=== PATIENT | male | born 1975 | race African-American/Black ===

== ENCOUNTER 2024-02-27 18:43 | Observation (INO) | payer MEDICARE, SELFPAY ==
[2024-02-27] MEDS ORDERED: Famotidine/PF 20 mg/2ml Vial ONE (20:20)
[2024-02-27] MEDS ORDERED: Acetaminophen 500 MG TAB ONE (20:20)
[2024-02-27 20:40] LABS: #Basophils 0.02 10x3/uL (0.0-0.2); #Eosinphils 0.16 10x3/uL (0.0-0.5); #Monocytes 0.56 10x3/uL (0.0-1.1); #Neutrophils 2.79 10x3/uL (1.5-8.4); %Basophils 0.3 % (0.0-2.0); %Eosinophils 2.7 % (0.0-6.0); %Lymphocytes 39.9 % (18.0-47.0); %Monocytes 9.5 % (0.0-10.0); %Neutrophils 47.4 % (40.0-75.0); Hematocrit 34.7 % (38.8-50.0); Hemoglobin 11.8 g/dL (13.5-17.5); Mean Corpuscular Hemoglobin 30.7 pg (27.0-33.0); Mean Corpuscular Volume 90.4 fL (81.2-95.1); Mean Platelet Volume 9.3 fL (7.4-10.4); Platelet Count 216 10x3/uL (150-450); RBC Distribution Width 13.2 % (11.5-14.5); Red Blood Cell (RBC) Count 3.84 10x6/uL (4.32-5.72); White Blood Cell (WBC) Count 5.9 10x3/uL (3.5-10.5)
[2024-02-27 20:59] LABS: ALT (SGPT) 13 U/L (8-55); AST (SGOT) 17 U/L (5-34); Albumin 4.1 g/dL (3.5-5.0); Alkaline Phosphatase 67 U/L (40-110); Anion Gap 12 mmol/L (10-20); BUN (Urea Nitrogen) 23 mg/dL (8.9-20.6); Bilirubin, Total 0.4 mg/dL (0.2-1.2); Calc. Creatinine Clearance 0 mL/min (70-130); Calcium 9.1 mg/dL (7.8-10.44); Carbon Dioxide 24 mmol/L (22-29); Chloride 101 mmol/L (98-107); Estimated GFR 55; Globulin 2.7 g/dL (2.4-3.5); Glucose 96 mg/dL (70-105); Lipase 23 U/L (8-78); Magnesium 1.9 mg/dL (1.6-2.6); Potassium 3.3 mmol/L (3.5-5.1); Protein, Total 6.8 g/dL (6.0-8.3); Sodium 134 mmol/L (136-145)
[2024-02-27 21:05] LABS: Troponin I Less than 0.010 ng/mL (< 0.028)
[2024-02-28 02:08] VITALS: BMI 23.6
[2024-02-28] MEDS ORDERED: Acetaminophen 325 MG TAB PO PRN (02:13)
[2024-02-28] MEDS ORDERED: Senokot S 8.6-50 MG TAB PO PRN (02:13)
[2024-02-28] MEDS: Sodium Chloride 0.9% 1,000 ML IV SCH (02:41)
[2024-02-28] MEDS: Potassium Chloride 20 MEQ TAB PO SCH (02:41)
[2024-02-28 04:38] LABS: Anion Gap 12 mmol/L (10-20); BUN (Urea Nitrogen) 18 mg/dL (8.9-20.6); Calc. Creatinine Clearance 64 mL/min (70-130); Calcium 8.4 mg/dL (7.8-10.44); Carbon Dioxide 23 mmol/L (22-29); Chloride 105 mmol/L (98-107); Estimated GFR 60; Glucose 134 mg/dL (70-105); Magnesium 1.7 mg/dL (1.6-2.6); Potassium 3.3 mmol/L (3.5-5.1); Sodium 137 mmol/L (136-145)
[2024-02-28 04:42] LABS: Troponin I Less than 0.010 ng/mL (< 0.028)
[2024-02-28 04:45] LABS: #Basophils 0.02 10x3/uL (0.0-0.2); #Eosinphils 0.21 10x3/uL (0.0-0.5); #Monocytes 0.42 10x3/uL (0.0-1.1); %Basophils 0.3 % (0.0-2.0); %Eosinophils 3.6 % (0.0-6.0); %Lymphocytes 48.6 % (18.0-47.0); %Monocytes 7.3 % (0.0-10.0); Hematocrit 32.4 % (38.8-50.0); Hemoglobin 11.1 g/dL (13.5-17.5); Mean Corpuscular HGB CONC 34.3 g/dL (32.0-36.0); Mean Corpuscular Hemoglobin 31.1 pg (27.0-33.0); Mean Corpuscular Volume 90.8 fL (81.2-95.1); Mean Platelet Volume 10.2 fL (7.4-10.4); Platelet Count 214 10x3/uL (150-450); Red Blood Cell (RBC) Count 3.57 10x6/uL (4.32-5.72); White Blood Cell (WBC) Count 5.8 10x3/uL (3.5-10.5)
[2024-02-28] MEDS: Aspirin 81 mg Enteric Coated Tablet PO SCH (09:27)
[2024-02-28] MEDS: Lisinopril 10 MG TAB PO SCH (09:27)
[2024-02-28] MEDS: Enoxaparin 40 MG (0.4 mL) SYRINGE SC SCH (09:28)
[2024-02-28 12:17] VITALS: TEMP 97.8
[2024-02-28] MEDS ORDERED: Magnesium 2 GM/50 ML(in water) 2 GM in Premix 1 BAG IVPB SCH (12:45)
[2024-02-28 13:56] VITALS: BP 145/92
== END 2024-02-28 14:35 | disposition home or self-care (01) ==
LOC: CSHERS 18:43 → CSHTELE 23:14
PROVIDERS: ADMIT Family Medicine; ATTEND Internal Medicine
DX: R07.9 Chest pain, unspecified (principal); R42 Dizziness and giddiness; E86.0 Dehydration; I10 Essential (primary) hypertension; F12.90 Cannabis use, unspecified, uncomplicated; E87.1 Hypo-osmolality and hyponatremia; R73.02 Impaired glucose tolerance (oral); E87.6 Hypokalemia; E74.39 Other disorders of intestinal carbohydrate absorption; Z79.82 Long term (current) use of aspirin; Z86.73 Personal history of transient ischemic attack (TIA), and cerebral infarction without residual deficits; Z87.891 Personal history of nicotine dependence; Z79.899 Other long term (current) drug therapy
CPT/HCPCS: 71045; 80048; 80053; 83690; 83735 ×2; 84484 ×2; 85025 ×2; 93005; J1650; J3490; J7030; 36415; 93010; 96372; 96374; G0378

== ENCOUNTER 2024-03-09 00:08 | Observation (INO) | payer MEDICARE ==
[2024-03-09] MEDS ORDERED: Lidocaine Viscous Sol 2% 15 ml UD Cup ONE (00:52)
[2024-03-09] MEDS ORDERED: Milk Of Magnesia 30 ML UDCUP ONE (00:52)
[2024-03-09 01:13] LABS: #Basophils 0.02 10x3/uL (0.0-0.2); #Eosinophils 0.16 10x3/uL (0.0-0.5); #Monocytes 0.71 10x3/uL (0.0-1.1); #Neutrophils 3.28 10x3/uL (1.5-8.4); %Basophils 0.3 % (0.0-2.0); %Eosinophils 2.4 % (0.0-6.0); %Lymphocytes 36.5 % (18.0-47.0); %Monocytes 10.8 % (0.0-10.0); %Neutrophils 49.8 % (40.0-75.0); Hematocrit 29.5 % (38.8-50.0); Hemoglobin 10.7 g/dL (13.5-17.5); Mean Corpuscular HGB CONC 36.3 g/dL (32.0-36.0); Mean Corpuscular Hemoglobin 30.8 pg (27.0-33.0); Mean Platelet Volume 9.7 fL (7.4-10.4); Platelet Count 240 10x3/uL (150-450); RBC Distribution Width 12.2 % (11.5-14.5); Red Blood Cell (RBC) Count 3.47 10x6/uL (4.32-5.72); White Blood Cell (WBC) Count 6.6 10x3/uL (3.5-10.5)
[2024-03-09 01:24] LABS: ALT (SGPT) 51 U/L (8-55); AST (SGOT) 46 U/L (5-34); Alkaline Phosphatase 55 U/L (40-110); Anion Gap 15 mmol/L (10-20); BUN (Urea Nitrogen) 9 mg/dL (8.9-20.6); Bilirubin, Total 0.5 mg/dL (0.2-1.2); Calc. Creatinine Clearance 0 mL/min (70-130); Calcium 9.3 mg/dL (7.8-10.44); Carbon Dioxide 24 mmol/L (22-29); Chloride 85 mmol/L (98-107); Estimated GFR 94; Globulin 2.6 g/dL (2.4-3.5); Glucose 92 mg/dL (70-105); Lipase 30 U/L (8-78); Potassium 2.9 mmol/L (3.5-5.1); Protein, Total 6.6 g/dL (6.0-8.3); Sodium 121 mmol/L (136-145)
[2024-03-09] MEDS ORDERED: Ondansetron PF 4 MG/2 ML Vial IVP PRN (01:56)
[2024-03-09 02:06] LABS: Magnesium 1.6 mg/dL (1.6-2.6)
[2024-03-09] MEDS ORDERED: Potassium Bicarbonate/Cit Ac 25 MEQ TAB ONE (02:19)
[2024-03-09] MEDS ORDERED: hydrALAZINE 20 MG/ML VIAL ONE (02:27)
[2024-03-09 02:31] LABS: #Basophils 0.02 10x3/uL (0.0-0.2); #Eosinophils 0.23 10x3/uL (0.0-0.5); #Monocytes 0.78 10x3/uL (0.0-1.1); #Neutrophils 3.29 10x3/uL (1.5-8.4); %Basophils 0.3 % (0.0-2.0); %Eosinophils 3.2 % (0.0-6.0); %Lymphocytes 39.2 % (18.0-47.0); %Neutrophils 46.2 % (40.0-75.0); Hematocrit 32.5 % (38.8-50.0); Hemoglobin 11.8 g/dL (13.5-17.5); Mean Corpuscular HGB CONC 36.3 g/dL (32.0-36.0); Mean Corpuscular Hemoglobin 31.1 pg (27.0-33.0); Mean Corpuscular Volume 85.5 fL (81.2-95.1); Mean Platelet Volume 9.7 fL (7.4-10.4); Platelet Count 261 10x3/uL (150-450); RBC Distribution Width 12.2 % (11.5-14.5); White Blood Cell (WBC) Count 7.1 10x3/uL (3.5-10.5)
[2024-03-09 02:48] LABS: Troponin I Less than 0.010 ng/mL (< 0.028)
[2024-03-09 02:56] LABS: ALT (SGPT) 56 U/L (8-55); AST (SGOT) 49 U/L (5-34); Albumin 4.4 g/dL (3.5-5.0); Alkaline Phosphatase 60 U/L (40-110); Anion Gap 17 mmol/L (10-20); BUN (Urea Nitrogen) 9 mg/dL (8.9-20.6); Bilirubin, Total 0.6 mg/dL (0.2-1.2); Calc. Creatinine Clearance 0 mL/min (70-130); Calcium 9.6 mg/dL (7.8-10.44); Carbon Dioxide 24 mmol/L (22-29); Chloride 85 mmol/L (98-107); Estimated GFR 86; Globulin 2.7 g/dL (2.4-3.5); Glucose 90 mg/dL (70-105); Potassium 3.1 mmol/L (3.5-5.1); Protein, Total 7.1 g/dL (6.0-8.3); Sodium 123 mmol/L (136-145)
[2024-03-09] MEDS ORDERED: hydrALAZINE 20 MG/ML VIAL SLOW IVP PRN (02:58)
[2024-03-09] MEDS: Potassium Bicarbonate/Cit Ac 25 MEQ TAB PO SCH (03:32)
[2024-03-09 03:38] VITALS: BMI 22.0
[2024-03-09] MEDS: Acetaminophen 325 MG TAB PO PRN (03:53)
[2024-03-09] MEDS: Sodium Chloride 0.9% 1,000 ML IV SCH ×2 (03:56→08:25)
[2024-03-09] MEDS: Potassium Chloride 20 MEQ TAB PO SCH (06:32)
[2024-03-09 06:42] LABS: Anion Gap 17 mmol/L (10-20); BUN (Urea Nitrogen) 9 mg/dL (8.9-20.6); Calc. Creatinine Clearance 79 mL/min (70-130); Calcium 8.7 mg/dL (7.8-10.44); Carbon Dioxide 23 mmol/L (22-29); Chloride 91 mmol/L (98-107); Estimated GFR 87; Glucose 103 mg/dL (70-105); Potassium 3.8 mmol/L (3.5-5.1); Sodium 127 mmol/L (136-145)
[2024-03-09] MEDS: Lisinopril 20 MG TAB PO SCH (08:17)
[2024-03-09] MEDS: Amoxicillin/Potassium Clav 875 MG TAB PO SCH (08:17)
[2024-03-09] MEDS: Sucralfate 1 GM TAB PO SCH (08:18)
[2024-03-09] MEDS: NIFEdipine XL 30 MG ER.TAB PO SCH (08:18)
[2024-03-09] MEDS: Pantoprazole 40 MG VIAL IVP SCH (08:22)
[2024-03-09 10:27] LABS: Anion Gap 13 mmol/L (10-20); BUN (Urea Nitrogen) 10 mg/dL (8.9-20.6); Calc. Creatinine Clearance 80 mL/min (70-130); Calcium 9.2 mg/dL (7.8-10.44); Carbon Dioxide 24 mmol/L (22-29); Chloride 94 mmol/L (98-107); Estimated GFR 89; Glucose 92 mg/dL (70-105); Potassium 4.3 mmol/L (3.5-5.1); Sodium 127 mmol/L (136-145)
[2024-03-09] MEDS: traMADol HCl 50 MG TAB PO PRN (11:57)
[2024-03-09 15:14] LABS: Anion Gap 14 mmol/L (10-20); BUN (Urea Nitrogen) 10 mg/dL (8.9-20.6); Calc. Creatinine Clearance 73 mL/min (70-130); Calcium 9.6 mg/dL (7.8-10.44); Carbon Dioxide 24 mmol/L (22-29); Chloride 99 mmol/L (98-107); Estimated GFR 79; Glucose 96 mg/dL (70-105); Potassium 4.9 mmol/L (3.5-5.1); Sodium 132 mmol/L (136-145)
[2024-03-09 15:19] LABS: Troponin I Less than 0.010 ng/mL (< 0.028)
[2024-03-09 18:38] LABS: Anion Gap 13 mmol/L (10-20); BUN (Urea Nitrogen) 10 mg/dL (8.9-20.6); Calc. Creatinine Clearance 69 mL/min (70-130); Calcium 9.5 mg/dL (7.8-10.44); Carbon Dioxide 25 mmol/L (22-29); Chloride 98 mmol/L (98-107); Estimated GFR 74; Glucose 124 mg/dL (70-105); Potassium 4.6 mmol/L (3.5-5.1); Sodium 131 mmol/L (136-145)
[2024-03-09 18:46] LABS: Troponin I Less than 0.010 ng/mL (< 0.028)
[2024-03-10 07:56] VITALS: BP 142/96; TEMP 97.8
[2024-03-10] MEDS: Cyanocobalamin (Vitamin B-12) 1,000 MCG TAB PO SCH (07:58)
== END 2024-03-10 09:57 | disposition home or self-care (01) ==
LOC: CSHERS 00:08 → CSHTELE 02:00
PROVIDERS: ADMIT Internal Medicine; ATTEND Internal Medicine
DX: E87.1 Hypo-osmolality and hyponatremia (principal); R10.13 Epigastric pain; I10 Essential (primary) hypertension; D64.9 Anemia, unspecified; E78.5 Hyperlipidemia, unspecified; Z79.899 Other long term (current) drug therapy
CPT/HCPCS: 74176; 80048; 80053 ×2; 82728; 83540; 83550; 83690; 83735; 84300; 84484 ×2; 85025 ×2; 93005; 96375; 96376 ×2; G0378 ×3; J0360; J2470 ×2; J7030; 36415; 93010; 96374

== ENCOUNTER 2024-05-28 13:11 | Emergency (ER) | payer MEDICARE | END 2024-05-28 13:56 | disposition home or self-care (01) | LOC: CSHERS 13:11 | DX: K05.10 Chronic gingivitis, plaque induced (principal); I10 Essential (primary) hypertension; F17.290 Nicotine dependence, other tobacco product, uncomplicated; Z86.73 Personal history of transient ischemic attack (TIA), and cerebral infarction without residual deficits; Z79.899 Other long term (current) drug therapy | CPT/HCPCS: 93005; 99284 ==

== ENCOUNTER 2025-01-11 19:38 | Observation (INO) | payer OTHER ==
[2025-01-11 20:53] LABS: #Basophils Less than 0.03 10x3/uL (0.0-0.2); #Eosinophils 0.09 10x3/uL (0.0-0.5); #Monocytes 0.57 10x3/uL (0.0-1.1); #Neutrophils 3.15 10x3/uL (1.5-8.4); %Basophils 0.3 % (0.0-2.0); %Eosinophils 1.4 % (0.0-6.0); %Lymphocytes 38.6 % (18.0-47.0); %Monocytes 9.1 % (0.0-10.0); %Neutrophils 50.4 % (40.0-75.0); Hematocrit 37.4 % (38.8-50.0); Hemoglobin 12.4 g/dL (13.5-17.5); Mean Corpuscular Hemoglobin 29.0 pg (27.0-33.0); Mean Corpuscular Volume 87.6 fL (81.2-95.1); Platelet Count 176 10x3/uL (150-450); Red Blood Cell (RBC) Count 4.27 10x6/uL (4.32-5.72); White Blood Cell (WBC) Count 6.25 10x3/uL (3.5-10.5)
[2025-01-11 21:09] LABS: ALT (SGPT) 36 U/L (Less than 45); AST (SGOT) 28 U/L (11-34); Albumin 4.3 g/dL (3.1-4.5); Alkaline Phosphatase 80 U/L (40-110); Anion Gap 11 mmol/L (10-20); BUN (Urea Nitrogen) 11 mg/dL (8.4-25.7); Bilirubin, Total 0.4 mg/dL (0.3-1.2); Calc. Creatinine Clearance 0 mL/min (70-130); Calcium 9.1 mg/dL (7.8-10.44); Carbon Dioxide 27 mmol/L (22-29); Chloride 104 mmol/L (98-107); Globulin 2.9 g/dL (2.4-3.5); Glucose 90 mg/dL (70-105); Lipase 30 U/L (8-78); Potassium 3.8 mmol/L (3.5-5.1); Sodium 138 mmol/L (136-145)
[2025-01-11 21:11] LABS: Troponin I 0.010 ng/mL (< 0.028)
[2025-01-11] MEDS ORDERED: Aspirin Chewable 81 MG TAB ONE (22:28)
[2025-01-11] MEDS ORDERED: Nitroglycerin 0.4 MG TAB 1 EACH ONE (23:17)
[2025-01-11] MEDS ORDERED: Ondansetron PF 4 MG/2 ML Vial IVP PRN (23:33)
[2025-01-11] MEDS ORDERED: Melatonin 3 MG TAB PO PRN (23:33)
[2025-01-11] MEDS ORDERED: Guaifenesin DM 100-10/5 ML UDCUP PO PRN (23:33)
[2025-01-11] MEDS ORDERED: Senokot S 8.6-50 MG TAB PO PRN (23:33)
[2025-01-11] MEDS ORDERED: Nitroglycerin 0.4 MG TAB (25 Tab Bottle) SL PRN (23:36)
[2025-01-11 23:45] LABS: Troponin I Less than 0.010 ng/mL (< 0.028)
[2025-01-12 00:22] VITALS: BMI 23.1
[2025-01-12] MEDS: Lidocaine 2% Viscous Solution 10 ML, Aluminum & Magnesium Hydroxide 30 ML SSW SCH (00:51)
[2025-01-12 03:58] LABS: Cardiac Risk 3.3 (Less than 4.5); Cholesterol 191.0 mg/dl (< 200 Desired); HDL Cholesterol 58.0 mg/dL (>60 Neg Risk); LDL Cholesterol, Calculated 124.0 mg/dL; Triglycerides 47.0 mg/dL (Less than 150)
[2025-01-12 04:02] LABS: Troponin I Less than 0.010 ng/mL (< 0.028)
[2025-01-12] MEDS: Pantoprazole 40 MG DR.TAB PO SCH (08:28)
[2025-01-12] MEDS: Lisinopril 20 MG TAB PO SCH (08:29)
[2025-01-12] MEDS: Aspirin 81 mg Enteric Coated Tablet PO SCH (08:29)
[2025-01-12] MEDS: Acetaminophen 325 MG TAB PO PRN (14:04)
[2025-01-12] MEDS: Calcium Carbonate 500 MG ChewTAB PO PRN (14:06)
[2025-01-12 17:06] VITALS: BP 133/82; TEMP 97.2
[2025-01-12] MEDS ORDERED: Rosuvastatin 10 MG TAB PO SCH (21:00)
== END 2025-01-12 17:45 | disposition home or self-care (01) ==
LOC: CSHERS 19:38 → CSHTELE 23:16
PROVIDERS: ADMIT Student in an Organized Health Care Education/Training Program; ATTEND Student in an Organized Health Care Education/Training Program
DX: R07.89 Other chest pain (principal); I16.0 Hypertensive urgency; I10 Essential (primary) hypertension; K21.9 Gastro-esophageal reflux disease without esophagitis; F41.9 Anxiety disorder, unspecified; Z86.73 Personal history of transient ischemic attack (TIA), and cerebral infarction without residual deficits; Z87.891 Personal history of nicotine dependence; Z79.82 Long term (current) use of aspirin; Z79.899 Other long term (current) drug therapy
CPT/HCPCS: 71045; 76705; 80053; 80061; 83690; 83880; 84443; 84484 ×3; 85025; 93005; 99285; G0378 ×2; 36415

== ENCOUNTER 2025-04-05 14:01 | Emergency (ER) | payer OTHER ==
[2025-04-05] MEDS ORDERED: Lidocaine Viscous Sol 2% 15 ml UD Cup ONE (15:12)
[2025-04-05] MEDS ORDERED: Mag-Al 1200 mg/1200 mg/30 ML UDCUP ONE (15:12)
[2025-04-05 15:20] LABS: #Basophils Less than 0.03 10x3/uL (0.0-0.2); #Eosinophils 0.08 10x3/uL (0.0-0.5); #Monocytes 0.41 10x3/uL (0.0-1.1); #Neutrophils 2.70 10x3/uL (1.5-8.4); %Basophils 0.4 % (0.0-2.0); %Eosinophils 1.5 % (0.0-6.0); %Lymphocytes 39.0 % (18.0-47.0); %Monocytes 7.8 % (0.0-10.0); %Neutrophils 51.1 % (40.0-75.0); Hematocrit 39.8 % (38.8-50.0); Hemoglobin 13.0 g/dL (13.5-17.5); Mean Corpuscular Hemoglobin 29.0 pg (27.0-33.0); Mean Corpuscular Volume 88.8 fL (81.2-95.1); Platelet Count 165 10x3/uL (150-450); Red Blood Cell (RBC) Count 4.48 10x6/uL (4.32-5.72); White Blood Cell (WBC) Count 5.28 10x3/uL (3.5-10.5)
[2025-04-05 15:37] LABS: ALT (SGPT) 19 U/L (Less than 45); AST (SGOT) 23 U/L (11-34); Albumin 4.5 g/dL (3.1-4.5); Alkaline Phosphatase 78 U/L (40-110); Anion Gap 13 mmol/L (10-20); BUN (Urea Nitrogen) 10 mg/dL (8.4-25.7); Bilirubin, Total 0.4 mg/dL (0.3-1.2); Calc. Creatinine Clearance 0 mL/min (70-130); Calcium 8.8 mg/dL (7.8-10.44); Carbon Dioxide 24 mmol/L (22-29); Chloride 105 mmol/L (98-107); Globulin 3.0 g/dL (2.4-3.5); Glucose 85 mg/dL (70-105); Lipase 22 U/L (8-78); Potassium 4.2 mmol/L (3.5-5.1); Sodium 138 mmol/L (136-145)
[2025-04-05 15:41] LABS: Troponin I Less than 0.010 ng/mL (< 0.028)
[2025-04-05 18:04] LABS: Troponin I Less than 0.010 ng/mL (< 0.028)
== END 2025-04-05 18:40 | disposition home or self-care (01) ==
LOC: CSHERS 14:01
DX: R07.81 Pleurodynia (principal); I10 Essential (primary) hypertension; Z86.73 Personal history of transient ischemic attack (TIA), and cerebral infarction without residual deficits; Z87.891 Personal history of nicotine dependence
CPT/HCPCS: 36415; 36416; 71045; 80053; 83690; 84484; 85025; 85379; 93005